=== PATIENT | male | born 1990 | race Caucasian/White ===

== ENCOUNTER 2021-11-29 22:12 | Emergency (ER) | payer SELFPAY | END 2021-11-29 22:20 | disposition left against medical advice (07) | LOC: ER 22:12 | DX: F10.129 Alcohol abuse with intoxication, unspecified (principal); Z53.21 Procedure and treatment not carried out due to patient leaving prior to being seen by health care provider; Y90.9 Presence of alcohol in blood, level not specified ==

== ENCOUNTER 2021-11-29 23:01 | Emergency (ER) | payer SELFPAY | END 2021-11-29 23:05 | disposition left against medical advice (07) | LOC: ER 23:01 | DX: F10.129 Alcohol abuse with intoxication, unspecified (principal); Z53.21 Procedure and treatment not carried out due to patient leaving prior to being seen by health care provider; Y90.9 Presence of alcohol in blood, level not specified ==